=== PATIENT | female | born 1975 | race Native Hawaiian/Other Pacific Islander ===

== ENCOUNTER 2017-04-16 08:23 | Outpatient (CLI) | payer BC | END 2017-04-16 20:22 | disposition home or self-care (01) | LOC: MAMMO 08:23 | DX: Z12.31 Encounter for screening mammogram for malignant neoplasm of breast (principal) ==

== ENCOUNTER 2018-11-19 22:15 | Emergency (ER) | payer OTHER ==
[~2018-11-19] VITALS: Ht 172.7 cm; Wt 101.2 kg
[2018-11-19 22:49] LABS: PLATELET COUNT 318 K/uL (152-353)
[2018-11-19 23:18] LABS: POTASSIUM 3.1 mmol/L (3.6-5.2)
[2018-11-20 05:12] VITALS: TEMP 98.3
[2018-11-20 08:00] VITALS: BP 130/60
== END 2018-11-20 12:20 | disposition other institution (70) ==
LOC: ED 22:15
PROVIDERS: Emergency Medicine
DX: R45.851 Suicidal ideations (principal); F15.90 Other stimulant use, unspecified, uncomplicated
CPT/HCPCS: 36415; 80053; 80307; 80320; 80329; 81000; 81025; 85027; 99285

== ENCOUNTER 2019-10-21 12:07 | Outpatient (CLI) | payer OTHER | END 2019-10-21 20:57 | disposition home or self-care (01) | LOC: LAB 12:07 | DX: Z20.828 Contact with and (suspected) exposure to other viral communicable diseases (principal) | CPT/HCPCS: 87635; G2023; U0003 ==

== ENCOUNTER 2022-11-15 09:26 | Outpatient (CLI) | payer OTHER | END 2022-11-15 16:00 | disposition home or self-care (01) | LOC: MAMMO 09:26 | PROVIDERS: ATTEND Obstetrics & Gynecology | DX: Z12.31 Encounter for screening mammogram for malignant neoplasm of breast (principal) ==